=== PATIENT | female | born 1945 ===

== ENCOUNTER 2018-03-13 12:04 | Emergency (ER) | payer MEDICAID ==
[2018-03-13 12:04] VITALS: BMI 23.6
[2018-03-13 12:18] VITALS: TEMP 99.3
[2018-03-13] MEDS ORDERED: Famotidine 20mg/50ml 40 MG/100 ML BAG IVPB ONE (13:00)
[2018-03-13] MEDS: Sodium Chloride 0.9% 1,000 ML IV SCH ×3 (13:22→15:57)
--- NOTE | 2018-03-13 13:37 | ED PDOC ---
HPI: Abdomen Time Seen by Provider: 03/13/18 12:21 Chief Complaint (Nursing): Abdominal Pain Chief Complaint (Provider): Abdominal Pain History Per: Patient History/Exam Limitations: no limitations Onset/Duration Of Symptoms: Days (x2) Current Symptoms Are (Timing): Still Present Additional Complaint(s): 73 y/o female with a pmhx of diabetes, HTN, and questionable DVT, who presents to ED for evaluation of diffuse abdominal pain onset at 3 am. She states pain is constant, felt most in LUQ, and associated with nausea and 2 loose bowel movements. Patient is also complaining of global headache. 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 Denies vomiting, fever, sick contacts, urinary symptoms, chest pain, shortness of breath, dizziness, palpitations, cough, changes in vision, numbness, and weakness. Patient reports recent travel to [place] within the last 3 months. PMD: Clinic Past Medical History Reviewed: Historical Data, Nursing Documentation, Vital Signs Vital Signs: Last Vital Signs Temp 99.3 F 03/13/18 12:17 Pulse 96 H 03/13/18 14:42 Resp 83 H 03/13/18 20:28 BP 192/84 H 03/13/18 20:28 Pulse Ox 99 03/13/18 20:40 - Medical History PMH: Arthritis, Diabetes, Deep Vein Thrombosis (questionable), HTN, Hypercholesterolemia, Hyperlipidemia, Migraine Denies: HIV, Chronic Kidney Disease - Surgical History Other surgeries: varicose veins - Family History Family History: States: Unknown Family Hx - Social History Current smoker - smoking cessation education provided: No Alcohol: None Drugs: Denies - Home Medications Home Medications: Ambulatory Orders Medication Instructions Recorded Acetaminophen/Butalbital/Caf 1 tab PO Q4 PRN 03/01/18 [Fioricet] Alendronate [Fosamax] 70 mg PO MO 03/01/18 Alogliptin Molina/Metformin HCl 1 tab PO BID 03/01/18 [Alogliptin-Metformin 12.5-1000] Aspirin [Ecotrin] 81 mg PO DAILY 03/01/18 Atorvastatin [Lipitor] 40 mg PO HS 03/01/18 Dabigatran [Pradaxa] 150 mg PO Q12 03/01/18 Enalapril Maleate [Vasotec] 10 mg PO DAILY 03/01/18 [place]-3 Fatty Acids/Fish Oil 1 cap PO DAILY 03/01/18 [[place]-3 1,000 mg Softgel] Omeprazole 20 mg PO DAILY 03/01/18 oxyCODONE/Acetaminophen [Percocet 1 tab PO Q6 PRN 03/01/18 5/325 mg Tab] Acetaminophen [Acetaminophen 8 650 mg PO Q8 PRN #24 tab 03/13/18 Hour] Famotidine [Pepcid] 40 mg PO DAILY #10 tablet 03/13/18 - Allergies Allergies/Adverse Reactions: Allergies Allergy/AdvReac Type Severity Reaction Status Date / Time No Known Allergies Allergy Verified 03/13/18 12:15 Review of Systems ROS Statement: Except As Marked, All Systems Reviewed And Found Negative Constitutional: Negative for: Fever Eyes: Negative for: Vision Change Cardiovascular: Negative for: Chest Pain, Palpitations Respiratory: Negative for: Cough, Shortness of Breath Gastrointestinal: Positive for: Nausea, Abdominal Pain, Diarrhea. Negative for : Vomiting Genitourinary Female: Negative for: Dysuria, Frequency, Incontinence Neurological: Positive for: Headache. Negative for: Dizziness Physical Exam - Reviewed Nursing Documentation Reviewed: Yes Vital Signs Reviewed: Yes - Physical Exam Comments: GENERAL APPEARANCE: Patient is awake, alert, oriented x 3, uncomfortable, but well appearing. SKIN: Warm, dry; (-) cyanosis. EYES: (-) conjunctival pallor, (-) scleral icterus. NECK: (-) tenderness, (-) stiffness, (-) lymphadenopathy. CHEST AND RESPIRATORY: (-) rales, (-) rhonchi, (-) wheezes; breath sounds equal bilaterally. HEART AND CARDIOVASCULAR: (-) irregularity; (-) murmur, (-) gallop. ABDOMEN AND GI: (-) distention. Bowel sounds active; (+) diffuse tenderness. (- ) guarding, (-) rebound, (-) palpable masses, (-) CVA tenderness bilaterally. EXTREMITIES: (-) deformity, (-) edema, (+) distal pulses. NEURO AND PSYCH: Mental status as above; (-) focal findings. Ambulatory in ED with steady gait. - Laboratory Results Result Diagrams: 03/13/18 13:30 03/13/18 13:30 Urine dip results: Positive for: Glucose (100). Negative for: Leukocyte Esterase, Blood, Nitrate, Ketones, Bilirubin, Protein - ECG O2 Sat by Pulse Oximetry: 99 (RA) Pulse Ox Interpretation: Normal Medical Decision Making Medical Decision Makin:21 Initial Impression: abdominal pain Plan: --VBG shock panel --EKG --CMP --Lipase --Troponin I --ED urine dipstick --CBC --1LNS --Pepcid 40mg IVP --Famotidine 40mg in 100ml IVPB --Zofran Inj 4mg IVP --Reevaluation EKG: NSR at 68 bpm, no ST elevation, prolonged QT, QTC 512 Repeat BP: 160/90. 1410 Labs reviewed. Lactate: 2.9 CT abdomen/pelvis with IV contrast ordered. 1600 Patient resting comfortably in no acute distress. Patient awaiting CT scan. 1830 Patient offers no additional complaints at this time. Reports improvement of presenting symptoms. 191 CT reviewed, radiology report follows: EXAM: CT Abdomen and Pelvis With Intravenous Contrast EXAM DATE/TIME: 03/13/2018 2:14 PM CLINICAL HISTORY: 73 years old, female; Pain; Abdominal pain; Generalized; Patient HX: Most pain luq llq. Dm HTN. Varicose veins SX; Additional info: Abd pain, nausea TECHNIQUE: Axial computed tomography images of the abdomen and pelvis with intravenous contrast. All CT scans at this facility use one or more dose reduction techniques, viz.: automated exposure control; ma/kV adjustment per patient size (including targeted exams where dose is matched to indication; i.e. head); or iterative reconstruction technique. CONTRAST: 98 ml of OMNIPAQUE administered intravenously. COMPARISON: CT - ABD PELVIS PO IV CONTRAST 2015-10-29 17:14 FINDINGS: Lower thorax: No acute findings. ABDOMEN: Liver: Normal. No mass. Gallbladder and bile ducts: Normal. No calcified stones. No ductal dilation. Pancreas: Normal. No ductal dilation. Spleen: Normal. No splenomegaly. Adrenals: Normal. No mass. Kidneys and ureters: Right renal atrophy. No hydronephrosis. Stomach and bowel: Normal. No obstruction. No mucosal thickening. Appendix: No findings to suggest acute appendicitis. PELVIS: Bladder: Unremarkable as visualized. Reproductive: Unremarkable as visualized. ABDOMEN and PELVIS: Intraperitoneal space: Normal. No free air. No significant fluid collection. Bones/joints: No acute fracture. No dislocation. Soft tissues: Unremarkable. Vasculature: Normal. No abdominal aortic aneurysm. Lymph nodes: Normal. No enlarged lymph nodes. IMPRESSION: No acute findings. Thank you for allowing us to participate in the care of your patient. Dictated and Authenticated by: Migue Mora MD 03/13/2018 7:02 PM Eastern Time ([place] & [place]) 1925 On re-evaluation, patient reports improvement of symptoms, denies any abdominal pain at this time. On exam, patient remains AAOx3, in no acute distress. Lungs clear to auscultation, cardiac RRR, abdomen soft, non-tender, repeat neuro exam shows no focal findings. Patient with elevated BP readings throughout ED visit. Patient reports that she is compliant with her HTN medications and continues to deny SOB, chest pain, palpitations, dizziness. Close follow up with PMD regarding BP management stressed to patient. Per niece at bedside, patient has a history of similar episodes of abdominal pain and has an endoscopy and colonoscopy scheduled for 03/22/18. 2039 Repeat BP: 163/80 Lab /Diagnostic results d/w the patient in great detail. Diagnosis of abdominal pain, nausea, elevated BP reading d/w the patient. Based on history, exam and diagnostic results, plan will be for outpatient follow up as planned. Patient instructed to follow-up with pmd / referral provided / the clinic in 1- 2 days without fail. Return to the emergency room at any time for any new or worsening symptoms. Patient states she fully agrees with and understands discharge instructions. States that she agrees with the plan and disposition. Verbalized and repeated discharge instructions and plan. I have given the patient opportunity to ask any additional questions. Scribe Attestation: Documented by Mendel Cooper, acting as a scribe for Sharlene Rodas PA-C. Provider Scribe Attestation: All medical record entries made by the Scribe were at my direction and personally dictated by me. I have reviewed the chart and agree that the record accurately reflects my personal performance of the history, physical exam, medical decision making, and the department course for this patient. I have also personally directed, reviewed, and agree with the discharge instructions and disposition. Disposition - Clinical Impression Clinical Impression: Abdominal pain in female, Nausea - Patient ED Disposition Is Patient to be Admitted: No Counseled Patient/Family Regarding: Studies Performed, Diagnosis, Need For Followup, Rx Given - Disposition Referrals: Junaid Dyson MD [Medical Doctor] - Disposition: Routine/Home Disposition Time: 20:40 Condition: STABLE Additional Instructions: Follow up with PMD/GI within 1-2 days for further evaluation without fail. Return to ED with any new or worsening symptoms. Prescriptions: Acetaminophen [Acetaminophen 8 Hour] 650 mg PO Q8 PRN #24 tab PRN Reason: Pain, Moderate (4-7) Famotidine [Pepcid] 40 mg PO DAILY #10 tablet Instructions: Acute Abdomen (Belly Pain), Nausea and Vomiting, Adult Forms: [facility] (Tuvaluan) Print Language: GEORGIAN - POA Present On Arrival: None
[2018-03-13 13:39] LABS: VENOUS BLOOD GAS BASE EXCESS 2.5 mmol/L (0.0-2.0); VENOUS BLOOD GAS PCO2 30 mmHg (40-60); VENOUS BLOOD GAS PO2 31 mm/Hg (30-55); VENOUS BLOOD PH 7.52 (7.32-7.43)
[2018-03-13 13:43] LABS: BASO # 0.1 K/uL (0.0-0.2); BASO % 1.3 % (0.0-2.0); EOS # 0.1 K/uL (0.0-0.7); EOS % 0.9 % (0.0-4.0); HEMOGLOBIN 11.8 g/dL (12.0-16.0); LYMPH # 1.8 K/uL (1.0-4.3); LYMPH % 18.4 % (20.0-40.0); MEAN CELL VOLUME 79.7 fl (81.0-99.0); MEAN CORPUSCULAR HEMOGLOBIN 26.6 pg (27.0-31.0); MEAN CORPUSCULAR HGB CONC 33.4 g/dL (33.0-37.0); MEAN PLATELET VOLUME 7.5 fl (7.2-11.7); MONO # 0.7 K/uL (0.0-0.8); MONO % 7.4 % (0.0-10.0); NEUT # 7.2 K/uL (1.8-7.0); NRBC % 0.1 % (0.0-0.0); RBC 4.44 Mil/uL (3.80-5.20); RED CELL DISTRIBUTION WIDTH 18.9 % (11.5-14.5)
[2018-03-13 13:52] LABS: SQUAMOUS EPITHIAL < 1 /hpf (0-5); URINE BILIRUBIN NEGATIVE (NEGATIVE); URINE BLOOD NEGATIVE (NEGATIVE); URINE CLARITY CLEAR (Clear); URINE COLOR YELLOW (YELLOW); URINE GLUCOSE (UA) 150 mg/dL (Normal); URINE LEUKOCYTE ESTERASE NEG Leu/uL (Negative); URINE PROTEIN NEGATIVE (NEGATIVE); URINE UROBILINOGEN 0.2-1.0 mg/dL (0.2-1.0)
[2018-03-13 14:11] LABS: ALB/GLOB RATIO 1.3 (1.0-2.1); ALBUMIN 4.6 g/dL (3.5-5.0); ALT/SGPT 38 U/L (9-52); AST/SGOT 39 U/L (14-36); BLOOD UREA NITROGEN 12 mg/dl (7-17); CALCIUM 9.4 mg/dL (8.4-10.2); GFR AFRICAN-AMERICAN > 60; GFR NON-AFRICAN AMERICAN > 60; LIPASE 263 U/L (23-300)
[2018-03-13] MEDS ORDERED: Iohexol 240 (50 ml) PO ONE (14:14)
[2018-03-13] MEDS ORDERED: Iohexol 240 (50 ml) ONE (14:35)
--- NOTE | 2018-03-13 14:50 | CARD ---
APPROVED REPORT EKG Measurement Heart [id number] <Conclusion> Normal sinus rhythm Prolonged QT Abnormal ECG
[2018-03-13] MEDS ORDERED: Iohexol 300 100 ML IJ ONE (16:24)
[2018-03-13] MEDS ORDERED: Sodium Chloride 0.9% 50 ML IV ONE (16:24)
[2018-03-13 20:29] VITALS: RESP 83
[2018-03-13 20:38] VITALS: O2SAT 99
[2018-03-13 20:45] VITALS: BP 163/80; PULSE 68
--- NOTE | 2018-03-14 08:21 | CT ---
PROCEDURE: CT Abdomen and Pelvis with contrast HISTORY: Abdominal pain, nausea COMPARISON: 10/29/2015. TECHNIQUE: CT scan of the abdomen and pelvis was performed without administration of intravenous contrast. Oral contrast was not administered. Coronal and sagittal reformatted images were obtained. Contrast dose: 98 cc Omnipaque Radiation dose: Total exam DLP = 327.96 mGy-cm. This CT exam was performed using one or more of the following dose reduction techniques: Automated exposure control, adjustment of the mA and/or kV according to patient size, and/or use of iterative reconstruction technique. FINDINGS: LOWER THORAX: The visualized lungs are clear. LIVER: Diffuse fatty infiltration. No gross lesion or ductal dilatation. GALLBLADDER AND BILE DUCTS: No calcified gallstones. PANCREAS: Normal in size with homogeneous enhancement. No gross lesion or ductal dilatation. SPLEEN: Normal in size and appearance. ADRENALS: No discrete nodule. KIDNEYS AND URETERS: Normal in size with homogeneous enhancement. No hydronephrosis. No solid mass. VASCULATURE: No aortic aneurysm. BOWEL: The small bowel loops are normal in caliber. The colon is unremarkable. No bowel dilatation or obstruction APPENDIX: Normal appendix. PERITONEUM: No free fluid. No free air. LYMPH NODES: No enlarged lymph nodes. BLADDER: Grossly normal in appearance. REPRODUCTIVE: The uterus is normal in size. BONES: No acute fracture. Within normal limits for the patient's age. OTHER FINDINGS: None. IMPRESSION: No acute abdominal or pelvic abnormality. A preliminary report was provided by [facility].
== END 2018-03-13 20:47 | disposition home or self-care (01) ==
LOC: H.ER 12:04
DX: R10.12 Left upper quadrant pain (principal); R11.0 Nausea; E11.9 Type 2 diabetes mellitus without complications; I10 Essential (primary) hypertension; Z79.01 Long term (current) use of anticoagulants; Z79.82 Long term (current) use of aspirin; Z86.718 Personal history of other venous thrombosis and embolism
CPT/HCPCS: 74177; 80053; 81003; 82803; 83690; 84484; 85025; 87086; 93005; 96361; 96374; 96375; 99284; J2405; J7030; Q9966; Q9967